=== PATIENT | male | born 1995 | race African-American/Black ===

== ENCOUNTER 2025-08-23 21:15 | Emergency (ER) | payer SELFPAY ==
[~2025-08-23] VITALS: Ht 180.3 cm; Wt 95.4 kg
[2025-08-23 22:59] LABS: BASOPHILS % 0.3 % (0.0-2.0); EOSINOPHILS % 0.2 % (0.0-5.0); HEMATOCRIT. 50.1 % (42.0-52.0); HEMOGLOBIN. 17.1 g/dL (14.0-18.0); LYMPHOCYTES % 15.0 % (20.0-50.0); MEAN PLATELET VOLUME 8.5 fl (7.4-10.4); MONOCYTES % 6.3 % (2.0-8.0); NEUTROPHILS % 78.2 % (40.0-76.0); PLATELET 226 x1000/uL (130-400); RED BLOOD CELL COUNT 4.99 mill/uL (4.7-6.1); RED CELL DISTRIBUTION WIDTH 14.8 % (11.6-14.6)
[2025-08-23 23:12] LABS: CREATININE 1.3 mg/dL (0.6-1.3); UREA NITROGEN BLOOD < 5 mg/dL (9-23)
[2025-08-23] MEDS ORDERED: SODIUM CHLORIDE 0.9% 1,000 ML IV ONE (23:15)
[2025-08-23] MEDS ORDERED: PHEN100C4 MT (23:38)
[2025-08-23 23:45] VITALS: BP 137/84; PULSE 100; RESP 14; TEMP 36.6; O2SAT 99
[2025-08-24] MEDS ORDERED: ACETAMINOPHEN 325MG TABLET PO ONE (00:15)
[2025-08-25] MEDS ORDERED: PHEN100C4 MT (12:09)
== END 2025-08-24 00:10 | disposition home or self-care (01) ==
LOC: ER 21:15
DX: R56.9 Unspecified convulsions (principal); R51.9 Headache, unspecified
CPT/HCPCS: 36415; 80048; 80320; 85025; 99284; J7030; G0480

== ENCOUNTER 2025-08-24 02:34 | Inpatient (IN) | payer SELFPAY ==
[~2025-08-24] VITALS: Ht 180.3 cm; Wt 103.1 kg
[~2025-08-24 02:34] MED LIST: PHEN100C4 MT
[2025-08-24] MEDS ORDERED: PHENYTOIN SODIUM 500 MG in SODIUM CHLORIDE 0.9% 50 ML IV ONE (03:00)
[2025-08-24] MEDS: SODIUM CHLORIDE 0.9% 1,000 ML IV ONE (03:09)
[2025-08-24 03:10] VITALS: O2SAT 97
[2025-08-24] MEDS: MIDAZOLAM HCL 2 MG/2 ML VIAL IV ONE (03:10)
[2025-08-24] MEDS: ONDANSETRON HCL 4MG/2ML INJ IV ONE (03:10)
[2025-08-24] MEDS: PHENYTOIN SODIUM 500 MG in SODIUM CHLORIDE 0.9% 50 ML IV NR (03:44)
[2025-08-24 08:00] VITALS: BP 123/83; PULSE 93; RESP 18; TEMP 36.2; O2SAT 97
[2025-08-24] MEDS ORDERED: CLONIDINE 0.1MG TABLET PO PRN (08:45)
[2025-08-24] MEDS ORDERED: ACETAMINOPHEN 325MG TABLET PO PRN (08:45)
[2025-08-24] MEDS ORDERED: ONDANSETRON HCL 4MG/2ML INJ IV PRN (08:45)
[2025-08-24] MEDS ORDERED: LORAZEPAM 2MG/ML UD SYRINGE IV PRN (08:45)
[2025-08-24] MEDS ORDERED: MAGNESIUM/ALUMINUM HYDROXIDE/SIMETHICONE 30ML UDC PO PRN (08:45)
[2025-08-24] MEDS ORDERED: NALOXONE HCL 0.4MG/ML VIAL IV PRN (09:15)
[2025-08-24 10:00] VITALS: BP 123/83; PULSE 93; RESP 18; TEMP 36.2512
[2025-08-24] MEDS: PANTOPRAZOLE SODIUM 40 MG/VIAL IV SCH (10:04)
[2025-08-24] MEDS: PHENYTOIN SODIUM EXTENDED 100MG CAPSULE PO SCH (10:05)
[2025-08-24] MEDS: SODIUM CHLORIDE 0.9% 1,000 ML IV SCH (10:05)
[2025-08-24] MEDS ORDERED: LEVETIRACETAM 1,000MG in NACL 100ML PREMIX IV SCH (10:30)
[2025-08-24] MEDS: LEVETIRACETAM 1000MG PREMIX 100 ML IV SCH (11:08)
[2025-08-24 12:00] VITALS: BP 122/60; PULSE 76; RESP 18; TEMP 35.8; O2SAT 97
[2025-08-24 16:00] VITALS: BP 99/57; PULSE 74; RESP 18; TEMP 36.1; O2SAT 98
[2025-08-24 18:44] LABS: BASOPHILS % 0.4 % (0.0-2.0); EOSINOPHILS % 0.4 % (0.0-5.0); HEMATOCRIT. 41.4 % (42.0-52.0); HEMOGLOBIN. 14.0 g/dL (14.0-18.0); LYMPHOCYTES % 30.6 % (20.0-50.0); MEAN PLATELET VOLUME 8.0 fl (7.4-10.4); MONOCYTES % 8.6 % (2.0-8.0); NEUTROPHILS % 60.0 % (40.0-76.0); PLATELET 189 x1000/uL (130-400); RED BLOOD CELL COUNT 4.14 mill/uL (4.7-6.1); RED CELL DISTRIBUTION WIDTH 14.8 % (11.6-14.6)
[2025-08-24 18:53] LABS: CREATININE 1.2 mg/dL (0.6-1.3)
[2025-08-24 18:54] LABS: UREA NITROGEN BLOOD < 5 mg/dL (9-23)
[2025-08-24 19:34] LABS: HEPATITIS C AB NON REACTIVE (Neg) (Negative)
[2025-08-24 20:00] VITALS: BP 115/74; PULSE 71; RESP 18; TEMP 36.6; O2SAT 98
[2025-08-24 20:40] LABS: CLARITY URINE CLOUDY (CLEAR); COLOR URINE DARK YELLOW (YELLOW); GLUCOSE URINE NEGATIVE (NEGATIVE); KETONES URINE TRACE (NEGATIVE); LEUKOCYTE ESTERASE URINE NEGATIVE (NEGATIVE); NITRITE URINE NEGATIVE (NEGATIVE); OCCULT BLOOD URINE NEGATIVE (NEGATIVE); PH URINE 5.5 (4.5-8.0); PROTEIN URINE TRACE (NEGATIVE); SPECIFIC GRAVITY URINE 1.016 (1.005-1.030); UROBILINOGEN URINE 0.2 E.U./dL (0.2-1.0)
[2025-08-24] MEDS: ENOXAPARIN 40MG/0.4ML SYR SUBCUT SCH (20:54)
[2025-08-24 21:00] LABS: *AMPHETAMINES SCREEN URINE PRESUMPTIVE POSITIVE (NEGATIVE); *BENZODIAZEPINES SCREEN URINE PRESUMPTIVE POSITIVE (NEGATIVE)
[2025-08-24] MEDS ORDERED: ZOLPIDEM TARTRATE 5MG TABLET PO PRN (21:00)
[2025-08-24 21:01] LABS: *BARBITURATES SCREEN URINE NEGATIVE (NEGATIVE); *COCAINE SCREEN URINE NEGATIVE (NEGATIVE); CANNABINOID URINE SCREEN PRESUMPTIVE POSITIVE (NEGATIVE); ECSTASY MDMA SCREEN URINE NEGATIVE (NEGATIVE); METHADONE URINE SCREEN NEGATIVE (NEGATIVE); OPIATES URINE SCREEN NEGATIVE (NEGATIVE); PHENCYCLIDINE URINE SCREEN NEGATIVE (NEGATIVE)
[2025-08-24 21:09] LABS: BACTERIA URINE 2+; RBC URINE 0-2 /hpf (0-2); SQUAMOUS EPITHELIAL CELL URINE 1+ /lpf (RARE/1+); WBC URINE 0-2 /hpf (0-2)
[2025-08-25] VITALS: BP 113/66; PULSE 69; RESP 18; TEMP 36.4; O2SAT 98
[2025-08-25] MEDS: HYDROCODONE/ACETAMINOPHEN 5/325MG TABLET PO PRN (00:43)
[2025-08-25 04:00] VITALS: BP 110/67; PULSE 67; RESP 19; TEMP 36.3; O2SAT 98
[2025-08-25] MEDS: MORPHINE SULFATE 4 MG/ML INJ (FOR IV/IM USE) IV PRN (06:46)
[2025-08-25 08:00] VITALS: BP 147/97; PULSE 71; RESP 17; TEMP 36.6; O2SAT 100
[2025-08-25 09:56] LABS: BASOPHILS % 0.5 % (0.0-2.0); EOSINOPHILS % 0.9 % (0.0-5.0); HEMATOCRIT. 42.7 % (42.0-52.0); HEMOGLOBIN. 14.1 g/dL (14.0-18.0); LYMPHOCYTES % 34.7 % (20.0-50.0); MEAN PLATELET VOLUME 8.5 fl (7.4-10.4); MONOCYTES % 7.2 % (2.0-8.0); NEUTROPHILS % 56.7 % (40.0-76.0); PLATELET 179 x1000/uL (130-400); RED BLOOD CELL COUNT 4.26 mill/uL (4.7-6.1); RED CELL DISTRIBUTION WIDTH 14.8 % (11.6-14.6)
[2025-08-25 10:25] LABS: CREATININE 1.1 mg/dL (0.6-1.3); UREA NITROGEN BLOOD < 5 mg/dL (9-23)
[2025-08-25 12:00] VITALS: BP 126/78; PULSE 76; RESP 18; TEMP 36.4; O2SAT 100
[2025-08-25] MEDS ORDERED: PHEN100C4 MT (12:09)
[2025-08-25 15:35] VITALS: BP 132/76; PULSE 74; RESP 18; TEMP 97.7
[2025-08-25 16:00] VITALS: BP 128/60; PULSE 74; RESP 17; TEMP 36.4; O2SAT 100
[2025-08-25] MEDS: IBUPROFEN 800MG TABLET PO PRN (21:20)
[2025-08-26] VITALS: BP 108/67; PULSE 97; RESP 20; TEMP 36.7; O2SAT 97
[2025-08-26 04:00] VITALS: BP 112/68; PULSE 62; RESP 20; TEMP 36.6; O2SAT 99
[2025-08-26 08:00] VITALS: BP 128/80; PULSE 65; RESP 17; TEMP 36.4; O2SAT 98
[2025-08-26 09:40] LABS: BASOPHILS % 0.4 % (0.0-2.0); EOSINOPHILS % 1.2 % (0.0-5.0); HEMATOCRIT. 40.4 % (42.0-52.0); HEMOGLOBIN. 13.6 g/dL (14.0-18.0); LYMPHOCYTES % 37.3 % (20.0-50.0); MEAN PLATELET VOLUME 8.4 fl (7.4-10.4); MONOCYTES % 9.3 % (2.0-8.0); NEUTROPHILS % 51.8 % (40.0-76.0); PLATELET 183 x1000/uL (130-400); RED BLOOD CELL COUNT 4.07 mill/uL (4.7-6.1); RED CELL DISTRIBUTION WIDTH 14.1 % (11.6-14.6)
[2025-08-26 09:59] LABS: CREATININE 0.9 mg/dL (0.6-1.3); UREA NITROGEN BLOOD < 5 mg/dL (9-23)
[2025-08-26 12:00] VITALS: BP 125/78; PULSE 73; RESP 18; TEMP 36.3; O2SAT 100
[2025-08-26] MEDS: POTASSIUM CHLORIDE 20MEQ TABLET SR PO SCH (12:16)
== END 2025-08-26 13:40 | disposition home or self-care (01) | DRG 53 ==
LOC: ER 02:34 → 6WST 05:15 → EDBEDREQ 05:16 → EDBEDREQTM 05:16 → ENRESERV 06:35
PROVIDERS: ADMIT Internal Medicine; ATTEND Internal Medicine
DX: G40.909 Epilepsy, unspecified, not intractable, without status epilepticus (principal); G92.8 Other toxic encephalopathy; F17.200 Nicotine dependence, unspecified, uncomplicated; F19.90 Other psychoactive substance use, unspecified, uncomplicated; Z91.148 Patient's other noncompliance with medication regimen for other reason
CPT/HCPCS: 36415; 80048; 80185; 80305; 81003; 85025; 86705; 87340; 93005; 93970; 97162; 99291; J1165; J1650; J1953; J2250; J2270; J2405; J2470; J7030